=== PATIENT | male | born 2000 | race Caucasian/White ===

== ENCOUNTER 2021-05-22 19:16 | Inpatient (IN) ==
[2021-05-22] MEDS ORDERED: ACETAMINOPHEN 325 MG TAB PO STA (21:08)
[2021-05-22] MEDS ORDERED: COLCHICINE 0.6 MG TAB PO ONE (21:08)
[2021-05-22] MEDS ORDERED: KETOROLAC TROMETHAMINE 15 MG/ML VIAL IV STA (21:08)
[2021-05-22 21:18] LABS: Basophils # (auto) 0.02 K/uL (0-0.2); Basophils % (auto) 0.2 %; Hematocrit (blood only) 43.7 % (42-52); Hemoglobin 14.7 g/dL (14.0-18.0); Immature Granulocytes # (auto) 0.02 K/uL (0.00-0.02); Immature Granulocytes % (auto) 0.2 %; Lymphocytes # (auto) 1.64 K/uL (1.2-3.4); Lymphocytes % (auto) 19.2 %; Mean Corpuscular Hgb Conc 33.6 g/dL (32-36); Mean Corpuscular Volume 83.2 fL (80-100); Mean Platelet Volume 10.3 fL (7.4-10.4); Monocytes # (auto) 0.99 K/uL (0.11-0.59); Monocytes % (auto) 11.6 %; Neutrophils # (auto) 5.26 K/uL (1.4-6.5); Neutrophils % (auto) 61.8 %; Platelet Count 234 K/uL (130-400); RDW Coefficient of Variation 14.3 % (11.5-14.5); RDW Standard Deviation 43.7 fL (36.4-46.3); Red Blood Count 5.25 M/uL (4.7-6.1); White Blood Count 8.53 K/uL (4.8-10.8)
--- NOTE | 2021-05-22 21:38 | Emergency Department Note ---
Impression & Plan Precordial chest pain, Elevated troponin, Vaccine reaction, Acute myopericarditis, Acute electrocardiogram changes ED Provider Note NAME: JOSE CAMACHO Jr AGE: 20 SEX: M : 2000 ARRIVES VIA: Walk-In INFORMANT: [Patient] ED PROVIDER(S): [Christiano Vasquez MD] CHIEF COMPLAINT: Cardiac assessment HISTORY OF PRESENT ILLNESS: The patient is a 20-year-old male who had a Moderna booster vaccination for COVID-19 just a few days ago. The day after the vaccination, he had a headache and some flulike symptoms and a low-grade fever. He had similar symptoms with his first vaccination series. Yesterday evening, he noticed some chest pain when he was lying down. The pain was mild. He was able to sleep. This morning, he had some mild discomfort but things were bearable. This evening, he noticed 9/10 chest pain when he was lying flat. He was not short of breath. His headache and flulike symptoms are gone, his fever is gone. His pain across the chest is better sitting forward. The patient presents for evaluation. The patient has a history of asthma, he has no coronary history. He denies any previous cardiac history. REVIEW OF SYSTEMS: See HPI for pertinent positives and negatives. A total of ten systems were reviewed and were otherwise negative. PMHx/PSHx: See Below SOCIAL HISTORY: See Below. PHYSICAL EXAM: GENERAL: Patient is in mild distress. Anxious, tearful. HEENT: No acute trauma, normocephalic atraumatic, mucous membranes moist, no nasal congestion, no scleral icterus. NECK: No stridor, no adenopathy, no meningismus, trachea is midline. LUNGS: Clear to auscultation bilaterally, no wheeze, no rhonchi, breath sounds equal. HEART: Without murmurs gallops or rubs, regular rate and rhythm. Patient was sitting forward during my exam. ABDOMEN: Soft, nontender, bowel sounds positive, no hernias, no peritonitis. EXTREMITIES: No cyanosis or edema, full range of motion of all the joints without pain or difficulty, no signs for acute trauma. NEUROLOGIC: Oriented x 3, no acute motor or sensory deficits, no focal weakness. SKIN: No rash, no jaundice, no diaphoresis. DIFFERENTIAL DIAGNOSIS: Cardiac ischemia, Covid vaccine reaction, aortic dissection, pulmonary embolism, pneumothorax, pneumonia, pericarditis, myocarditis, esophageal rupture, GERD, cholecystitis, pancreatitis, musculoskeletal, as well as other pathologies. EMERGENCY DEPARTMENT COURSE/PROCEDURES: ECG: Indication was chest pain. The ECG shows a normal sinus rhythm with a rate of 64. There is ST elevation across almost every lead. The inferior, anterior and lateral leads show upsloping ST elevation. There are inverted T waves with some ST depression in leads aVR and V1. There are inverted T waves in lead aVL. There are no PVCs. The QTc is 389. Continuous Cardiac Monitoring: An order was placed for continuous cardiac monitoring. The monitor shows a rate of 65 with normal sinus rhythm. Critical Care Note: I have personally spent 39 minutes of critical care time in the direct management of this patient. This includes bedside care, interpretation of diagnostic studies, and testing, discussion with consultants, patient, and family members, and other required patient management activities. This 39 minutes is in excess of all separately billable procedures. MEDICAL DECISION MAKING: There is no leukocytosis or concerning anemia. There is a normal platelet count. Sed rate is mildly elevated, C-reactive protein is elevated. There is no significant electrolyte abnormality or renal failure. AST is mildly elevated, the remaining liver enzymes are unremarkable. No evidence for pancreatitis. The patient appears to be in a euthyroid state. Covid testing returned negative. Chest x-ray does not show mediastinal widening, cardiomegaly or CHF. ECG shows sinus rhythm with diffuse upsloping ST elevation with some reciprocal changes. ECG is consistent with pericarditis. Cardiac enzyme testi ng is elevated consistent with the diagnosis of myopericarditis. The patient presents with chest pain which is present lying down, it is better when he sits forward. He has ECG changes suggesting a pericarditis. He just received the Covid vaccination which has been known to occasionally lead to a myopericarditis. I did consult Dr. Kellogg of cardiology. The patient can be admitted to our hospital. Toradol, Tylenol and colchicine were suggested. The patient was given IV Toradol, oral colchicine and oral Tylenol. I talked to the patient about his findings, he is aware of the diagnosis and the need for a hospital stay. I did offer to talk to his family however, he did not feel this was necessary. I spoke with the assistant case manager. The on-call hospitalist was consulted. Past Med/Surg History Medical History Asthma Social History Smoking Status: Never smoker Preferred Language: Luxembourgish Feels Safe at Home: Yes Results & Data (ED) Vital Signs Vital Signs - 24 hr 05/22/21 19:37 05/22/21 20:55 05/22/21 21:00 Temperature 37 C Temperature Source Temporal Artery Scan Pulse Rate 73 Pulse Rate [Apical] 87 Pulse Rhythm [Apical] Regular Respiratory Rate 18 19 Respiratory Depth Normal Blood Pressure 115/70 Blood Pressure [Right Arm] 102/63 Blood Pressure Mean 85 Blood Pressure Mean [Right Arm] 76 Pulse Oximetry 97 95 95 Oxygen Delivery Method Room Air Room Air Oxygen Flow Rate 99 Sepsis Recent Fever Within 48 Hours No Sepsis New/Unexplained Change in Mental Status No Sepsis Action Taken by Nursing No Action Required 05/22/21 22:00 Temperature Temperature Source Pulse Rate Pulse Rate [Apical] 83 Pulse Rhythm [Apical] Regular Respiratory Rate 20 Respiratory Depth Blood Pressure Blood Pressure [Right Arm] 108/73 Blood Pressure Mean Blood Pressure Mean [Right Arm] 84 Pulse Oximetry 98 Oxygen Delivery Method Room Air Oxygen Flow Rate Sepsis Recent Fever Within 48 Hours Sepsis New/Unexplained Change in Mental Status Sepsis Action Taken by Custodial Medications Current Medication List: was personally reviewed by me Laboratory Data Attestation: I reviewed the patient's lab results. Result diagrams: 05/22/21 21:03 05/22/21 21:03 Lab Results 05/22/21 05/22/21 05/22/21 Range/Units 21:03 21:03 21:03 WBC 8.53 (4.8-10.8) K/uL RBC 5.25 (4.7-6.1) M/uL Hgb 14.7 (14.0-18.0) g/dL Hct 43.7 (42-52) % MCV 83.2 (80-100) fL MCH 28.0 (25-34) pg MCHC 33.6 (32-36) g/dL RDW Std Deviation 43.7 (36.4-46.3) fL RDW Coeff of Thom 14.3 (11.5-14.5) % Plt Count 234 (130-400) K/uL MPV 10.3 (7.4-10.4) fL Immature Gran % (Auto) 0.2 % Neut % (Auto) 61.8 % Lymph % (Auto) 19.2 % [place] % (Auto) 11.6 % Eos % (Auto) 7.0 % Baso % (Auto) 0.2 % Neut # (Auto) 5.26 (1.4-6.5) K/uL Lymph # (Auto) 1.64 (1.2-3.4) K/uL [place] # (Auto) 0.99 H (0.11-0.59) K/uL Eos # (Auto) 0.60 H (0-0.5) K/uL Baso # (Auto) 0.02 (0-0.2) K/uL Immature Gran # (Auto) 0.02 (0.00-0.02) K/uL ESR 25 H (0-15) mm/hr Sodium 138 (136-145) mmol/L Potassium 3.9 (3.5-5.1) mmol/L Chloride 101 (98-107) mmol/L Carbon Dioxide 28 (21-32) mmol/L Anion Gap 9 (3-11) BUN 9 (6-23) mg/dl Creatinine 0.82 (0.6-1.4) mg/dl Est Cr Clr Drug Dosing 128.5 ml/min Est GFR ( Amer) 148.6 ml/min Est GFR (Non-Af Amer) 128.2 ml/min BUN/Creatinine Ratio 11.0 (10-20) Glucose 90 (70-99(Fasting)) mg/dl Calcium 9.1 (8.5-10.1) mg/dl Magnesium 2.2 (1.7-2.4) mg/dl Total Bilirubin 0.5 (0.2-1.0) mg/dl AST 121 H (13-39) U/L ALT 41 (7-52) U/L Alkaline Phosphatase 67 (34-104) U/L Troponin I 8.65 H* (0-0.04) ng/ml C-Reactive Protein 2.59 H (0-0.5) mg/dl Total Protein 7.7 (6.0-8.3) gm/dl Albumin 4.5 (3.4-5.0) gm/dl Globulin 3.2 (2.5-4.0) gm/dl Albumin/Globulin Ratio 1.4 (0.9-2) Lipase 7 L (11-82) U/L TSH (0.300-4.500) uIu/ml SARS-CoV-2, RNA, NAAT (NEGATIVE) 05/22/21 05/22/21 05/22/21 Range/Units 21:03 21:03 21:35 WBC (4.8-10.8) K/uL RBC (4.7-6.1) M/uL Hgb (14.0-18.0) g/dL Hct (42-52) % MCV (80-100) fL MCH (25-34) pg MCHC (32-36) g/dL RDW Std Deviation (36.4-46.3) fL RDW Coeff of Thom (11.5-14.5) % Plt Count (130-400) K/uL MPV (7.4-10.4) fL Immature Gran % (Auto) % Neut % (Auto) % Lymph % (Auto) % [place] % (Auto) % Eos % (Auto) % Baso % (Auto) % Neut # (Auto) (1.4-6.5) K/uL Lymph # (Auto) (1.2-3.4) K/uL [place] # (Auto) (0.11-0.59) K/uL Eos # (Auto) (0-0.5) K/uL Baso # (Auto) (0-0.2) K/uL Immature Gran # (Auto) (0.00-0.02) K/uL ESR (0-15) mm/hr Sodium (136-145) mmol/L Potassium (3.5-5.1) mmol/L Chloride (98-107) mmol/L Carbon Dioxide (21-32) mmol/L Anion Gap (3-11) BUN (6-23) mg/dl Creatinine (0.6-1.4) mg/dl Est Cr Clr Drug Dosing ml/min Est GFR ( Amer) ml/min Est GFR (Non-Af Amer) ml/min BUN/Creatinine Ratio (10-20) Glucose (70-99(Fasting)) mg/dl Calcium (8.5-10.1) mg/dl Magnesium (1.7-2.4) mg/dl Total Bilirubin (0.2-1.0) mg/dl AST (13-39) U/L ALT (7-52) U/L Alkaline Phosphatase (34-104) U/L Troponin I (0-0.04) ng/ml C-Reactive Protein Cancelled (0-0.5) mg/dl Total Protein (6.0-8.3) gm/dl Albumin (3.4-5.0) gm/dl Globulin (2.5-4.0) gm/dl Albumin/Globulin Ratio (0.9-2) Lipase (11-82) U/L TSH 2.317 (0.300-4.500) uIu/ml SARS-CoV-2, RNA, NAAT NEGATIVE (NEGATIVE) Administered Medications Discontinued Medications Acetaminophen (Acetaminophen 325 Mg Tab) 650 mg PO NOW STA Stop: 05/22/21 21:09 Last Admin: 05/22/21 21:32 Dose: 650 mg Documented by: [id number] Colchicine (Colchicine 0.6 Mg Tab) 0.6 mg PO NOW ONE Stop: 05/22/21 21:09 Last Admin: 05/22/21 21:32 Dose: 0.6 mg Documented by: [id number] Ketorolac Tromethamine (Ketorolac Tromethamine 15 Mg/Ml Vial) 15 mg IV NOW STA Stop: 05/22/21 21:09 Last Admin: 05/22/21 21:32 Dose: 15 mg Documented by: [id number] Imaging Data Attestation: I personally reviewed and interpreted this imaging study as follows: My Impression: Chest x-ray: There is no mediastinal widening, pneumonia or pneumothorax. No CHF per my review. Discharge Plan Visit Data Chief Complaint: Cardiac Assessment Stated Complaint: CHEST PAIN, COVID BOOSTER SAT ED Provider: Christiano Vasquez Discharge Problem: Precordial chest pain, Elevated troponin, Vaccine reaction, Acute myopericarditis, Acute electrocardiogram changes Patient Disposition: Admitted As Inpatient Condition: Fair Forms Stand Alone Forms: My [facility] Referrals Referrals: PCP,NO [Primary Care Provider] -
[2021-05-22 21:49] LABS: Albumin Globulin Ratio 1.4 (0.9-2); Albumin Level 4.5 gm/dl (3.4-5.0); Bilirubin,Total 0.5 mg/dl (0.2-1.0); C Reactive Protein 2.59 mg/dl (0-0.5); Calcium 9.1 mg/dl (8.5-10.1); Creatinine Clr Calc Pharmacy 128.5 ml/min; Est GFR (African American) 148.6 ml/min; Est GFR (Non-African American) 128.2 ml/min; Globulin 3.2 gm/dl (2.5-4.0); Magnesium 2.2 mg/dl (1.7-2.4); Potassium 3.9 mmol/L (3.5-5.1); Total Protein 7.7 gm/dl (6.0-8.3)
[2021-05-22 21:54] LABS: Troponin I 8.65 ng/ml (0-0.04)
--- NOTE | 2021-05-22 22:59 | History & Physical Report ---
Date of Service May 22, 2021 Assessment & Plan (1) Precordial chest pain: Plan: Srinivasan is a 20-year-old male with history of intermittent asthma and eczema who presents to [facility] for evaluation of chest pain approx. 3 days after receiving Moderna booster, subsequently found to have diffuse ST-T elevations, an elevated troponin, and elevated inflammatory markers -- concerning for myopericarditis. Suspected Myopericarditis / Positionally-related Chest Pain In the context of Covid vaccination approximately 3 days ago, patient developed acute onset positionally related chest pain Work-up as follows: EKG demonstrating diffuse ST elevations in the inferior and precordial leads, alongside elevated troponin to 8.6, elevated AST, and elevated inflammatory markers Physical exam revealing weak rub, otherwise no evidence of acute heart failure; upper/lower extremity pulses are 2+ and equal bilaterally, no focal neurologic deficits No family history of early cardiac , aortopathies Suspect patient's presentation is primarily secondary to myopericarditis; low concern, at present, for aortic dissection, ACS, coronary vasospasm, PE Check TTE in a.m. Consult cardiology: Appreciate insight on length of treatment / need for CRP checks, activity restrictions following discharge from the hospital, need for repeat echo in future Initiate scheduled colchicine 0.6 mg twice daily and Toradol 15 mg every 6 hours (no more than 5 days) -- ED physician spoke with on-call enameler who recommended these two Check CBC, CRP in a.m. Trend troponin every 6 hours COVID-19 negative Pending cardiology review, may wish to speak with pharmacy and report this event to adverse vaccine events database Intermittent asthma Patient reports only utilizing albuterol inhaler as needed, which is quite rare If patient reporting shortness of breath, will evaluate to ensure not secondary to cardiovascular cause; otherwise, can consider albuterol as needed Code: Full code Diet: Regular Dispo: PCU Prophylaxis: Ambulate ad sivakumar. (2) Elevated troponin: Plan: - As above, trend (3) Vaccine reaction: Plan: - Suspected, as above. May wish to speak to pharmacy following cardiology consultation to potentially report this event to vaccine adverse events database. History of Present Illness Primary Care Provider: NO PCP Srinivasan is a 20-year-old male with history of intermittent asthma and eczema who presents to [facility] for evaluation of chest pain. Patient states that he was in his normal health up until this weekend, when he got the third Moderna vaccine. Like his to previous shots, he said he felt under the weather and had some chills and fatigue. Then, beginning last night, he began having a mild chest pain that was worse with lying down and better with sitting up. He was able to get to sleep however. He then went about his day today with classes and when he got home, laid down and had severe 9 out of 10 chest pain on his right side that got better when he sat up. He thereafter continued to have an intermittent chest pain that he describes as dull and squeezing. He said that with lying down, he felt a little short of breath. Because of his symptoms, did decide to come to the ER for evaluation. He denies any recent illnesses prior to this event/last week. Denies any new medications. He is a college student at [employer], currently a sophomore studying structural engineering. Denies any use of any recreational drugs (including cocaine), alcohol, tobacco products. He denies any early cardiac or events in the family, but does endorse several family members who have had strokes and myocardial infarctions (specifically, his 2 grandfathers). He denies history of aortic disease that is known to him. In the ED, patient was found to be hemodynamically stable. His EKG was revealing for diffuse ST elevations within the leads II, III, aVF, V3 through V6; also observed were T wave inversions in aVR, aVL, V1, V2. Chest x-ray did not demonstrate any acute pulmonary processes; no evidence of cardiomegaly. Labs were significant for troponin 8.65, CRP 2.59, ESR 25, relative monocytosis at 0.99, eosinophilia at 0.6. Covid testing negative. Emergency physician spoke with the on-call enameler, who agreed that patient's presentation was concerning for myopericarditis; regular Toradol and colchicine were recommended. Allergies Allergy/AdvReac Type Severity Reaction Status Date / Time peanut Allergy Severe Anaphylaxis Verified 05/22/21 23:32 shrimp Allergy Unknown Verified 05/22/21 23:32 Home Medications Medication Instructions Recorded Confirmed Type Perscribed Lotion 1 applic TOPICAL DAILY 05/22/21 05/22/21 History diphenhydramine HCl 6.25 mg/5 mL 0 mg PO DIRECTED PRN 05/22/21 05/22/21 History oral liquid Past Med/Surg History Medical History Asthma Family History (Updated 05/23/21 @ 01:44 by Dafne Nelson DO) Other Coronary heart disease Stroke Social History Smoking Status: Never smoker Hx Alcohol Use: No Hx Substance Use: No Preferred Language: Citizen Of [place] Communication Ability: Effective Alkylation Operator Required: No Beliefs That Will Affect Care: None Current Living Situation: Other Current Living Situation Comment: lives with two roommates in an apartment Other Information That Helps Us Care for You: No Feels Safe at Home: Yes Safety Concerns: Feels Safe At This Time Assistive Devices: None Review of Systems Review of Systems: as per HPI Physical Exam Physical Exam: General: Healthy-appearing 20-year-old male in no acute distress. HEENT: NCAT. - Eyes - Sclera are white, anicteric, and without injection. PERRL. - Mouth - MMM with no tonsillar edema or exudates. - Neck -no JVD. Cardiac: Normal rate and regular rhythm; S1 and S2 present with no murmurs or gallops, very soft rub heard with inspiration at the LUSB Pulmonary: Good respiratory effort with symmetric expansion of the chest. No use of accessory muscles. Lungs were clear to auscultation bilaterally with no crackles or wheezes. Abdominal: Normoactive bowel sounds. Abdomen was soft, nondistended, and non- tender to palpation. Extremities: Upper and lower extremities are warm and well perfused. Radial and dorsalis pedis pulses were equal and 2+ b/l. No peripheral edema. Neuro: CN II-XII grossly intact. ROM in UE, LE was uniform bilaterally. Psych: Well-developed, well-nourished, appropriately dressed for occasion. Behavior is cooperative and appropriate. Affect is WNL. Insight is appropriate. Results & Data Results & Data ([facility]) Vital Signs (Past 12 Hours) Vital Signs Temp Pulse Pulse Resp BP BP Pulse Ox 05/22/21 22:00 83 20 108/73 98 05/22/21 21:00 95 05/22/21 20:55 87 19 102/63 95 05/22/21 19:37 37 C 73 18 115/70 97 Laboratory Results Laboratory Results WBC 8.53 K/uL (4.8-10.8) 05/22/21 21:03 RBC 5.25 M/uL (4.7-6.1) 05/22/21 21:03 Hgb 14.7 g/dL (14.0-18.0) 05/22/21 21:03 Hct 43.7 % (42-52) 05/22/21 21:03 MCV 83.2 fL (80-100) 05/22/21 21:03 MCH 28.0 pg (25-34) 05/22/21 21: MCHC 33.6 g/dL (32-36) 05/22/21 21:03 RDW Std Deviation 43.7 fL (36.4-46.3) 05/22/21 21:03 RDW Coeff of Thom 14.3 % (11.5-14.5) 05/22/21 21: Plt Count 234 K/uL (130-400) 05/22/21 21:03 MPV 10.3 fL (7.4-10.4) 05/22/21 21:03 Immature Gran % (Auto) 0.2 % 05/22/21 21: Neut % (Auto) 61.8 % 05/22/21 21: Lymph % (Auto) 19.2 % 05/22/21 21:03 [place] % (Auto) 11.6 % 05/22/21 21:03 Eos % (Auto) 7.0 % 05/22/21 21: Baso % (Auto) 0.2 % 05/22/21 21: Neut # (Auto) 5.26 K/uL (1.4-6.5) 05/22/21 21:03 Lymph # (Auto) 1.64 K/uL (1.2-3.4) 05/22/21 21:03 [place] # (Auto) 0.99 K/uL (0.11-0.59) H 05/22/21 21:03 Eos # (Auto) 0.60 K/uL (0-0.5) H 05/22/21 21:03 Baso # (Auto) 0.02 K/uL (0-0.2) 05/22/21 21:03 Immature Gran # (Auto) 0.02 K/uL (0.00-0.02) 05/22/21 21:03 ESR 25 mm/hr (0-15) H 05/22/21 21:03 Sodium 138 mmol/L (136-145) 05/22/21 21:03 Potassium 3.9 mmol/L (3.5-5.1) 05/22/21 21:03 Chloride 101 mmol/L (98-107) 05/22/21 21:03 Carbon Dioxide 28 mmol/L (21-32) 05/22/21 21:03 Anion Gap 9 (3-11) 05/22/21 21:03 BUN 9 mg/dl (6-23) 05/22/21 21:03 Creatinine 0.82 mg/dl (0.6-1.4) 05/22/21 21:03 Est Cr Clr Drug Dosing 128.5 ml/min 05/22/21 21:03 Est GFR ( Amer) 148.6 ml/min 05/22/21 21:03 Est GFR (Non-Af Amer) 128.2 ml/min 05/22/21 21:03 BUN/Creatinine Ratio 11.0 (10-20) 05/22/21 21:03 Glucose 90 mg/dl (70-99(Fasting)) 05/22/21 21:03 Calcium 9.1 mg/dl (8.5-10.1) 05/22/21 21: Magnesium 2.2 mg/dl (1.7-2.4) 05/22/21 21: Total Bilirubin 0.5 mg/dl (0.2-1.0) 05/22/21 21:03 AST 121 U/L (13-39) H 05/22/21 21:03 ALT 41 U/L (7-52) 05/22/21 21:03 Alkaline Phosphatase 67 U/L (34-104) 05/22/21 21:03 Troponin I 8.65 ng/ml (0-0.04) H* 05/22/21 21:03 C-Reactive Protein 2.59 mg/dl (0-0.5) H 05/22/21 21:03 C-Reactive Protein Cancelled 05/22/21 21:03 Total Protein 7.7 gm/dl (6.0-8.3) 05/22/21 21:03 Albumin 4.5 gm/dl (3.4-5.0) 05/22/21 21:03 Globulin 3.2 gm/dl (2.5-4.0) 05/22/21 21:03 Albumin/Globulin Ratio 1.4 (0.9-2) 05/22/21 21:03 Lipase 7 U/L (11-82) L 05/22/21 21:03 TSH 2.317 uIu/ml (0.300-4.500) 05/22/21 21:03 SARS-CoV-2, RNA, NAAT NEGATIVE (NEGATIVE) 05/22/21 21:35 ECG Additional Comments: EKG with NSR at 64bpm, up-sloping ST segments in II, III, aVF, V4-V6, TW inversions in aVL and V1 Code Status & VTE Plan VTE Prophylaxis Plan VTE Prophylaxis will be ordered: No Supervising Physician Co-Signing Physician Notes Patient seen and examined, chart reviewed, case discussed with Dr. Zepeda and I agree with the assessment and plan as documented above. In brief, patient is a 20yo male presenting with myopericarditis following Covid-19 booster vaccine. +positional chest pain, EKG changes consistent with pericarditis, elevated troponin at 8.65 No evidence of failure or arrhythmia Exam is unremarkable, - afebrile, HD stable +S1/S2, regular, no m/r/g Lungs CTA Abd - +BS, soft, NT/ND Ext warm, well perfused without clubbing, cyanosis or edema Labs and images reviewed Assessment/Plan - suspect acute myopericarditis secondary to Covid-19 booster vaccine - rare but highly reported side effect typically occurring in young men Tx with colcicine, toradol Trend troponin and inflammatory markers Cardiology consultation appreciated Resident Activity Tracking Resident Involvement: Resident Care Provided Care Provided: Adult Hospital Medicine (1) Vaccine reaction Encounter type: initial encounter Qualified Code(s): T50.Z95A - Adverse effect of other vaccines and biological substances, initial encounter
--- NOTE | 2021-05-23 01:42 | Billing Data ---
Date of Service May 22, 2021 Coding Level of Care Code 57552 Initial Inpt Care Lvl 2
[2021-05-23] MEDS: KETOROLAC TROMETHAMINE 15 MG/ML VIAL IV SCH ×2 (03:19→13:07)
--- NOTE | 2021-05-23 06:37 | XRay Report ---
SINGLE VIEW CHEST CLINICAL HISTORY: Atypical chest pain. FINDINGS: An AP, portable, upright chest radiograph is obtained No prior studies are available for co mparison at the time of dictation. The cardiomediastinal silhouette is unremarkable. The lungs and pl eural spaces are clear. No pneumothorax is seen. The bony thorax is grossly intact. IMPRESSION: No active disease in the chest. ACT 112: Negative or not required by law. Electronically signed by: Christiano Walsh M.D. 05/23/2021 6:36 AM
[2021-05-23] MEDS: COLCHICINE 0.6 MG TAB PO SCH ×2 (08:38→20:22)
[2021-05-23 09:29] LABS: Basophils # (auto) 0.02 K/uL (0-0.2); Basophils % (auto) 0.4 %; Eosinophils # (auto) 0.74 K/uL (0-0.5); Eosinophils % (auto) 13.6 %; Hematocrit (blood only) 45.4 % (42-52); Immature Granulocytes # (auto) 0.01 K/uL (0.00-0.02); Immature Granulocytes % (auto) 0.2 %; Lymphocytes # (auto) 1.45 K/uL (1.2-3.4); Lymphocytes % (auto) 26.6 %; Mean Corpuscular Hemoglobin 27.9 pg (25-34); Mean Corpuscular Volume 84.4 fL (80-100); Mean Platelet Volume 9.8 fL (7.4-10.4); Monocytes # (auto) 0.66 K/uL (0.11-0.59); Monocytes % (auto) 12.1 %; Neutrophils # (auto) 2.57 K/uL (1.4-6.5); Neutrophils % (auto) 47.1 %; Platelet Count 226 K/uL (130-400); RDW Coefficient of Variation 14.4 % (11.5-14.5); RDW Standard Deviation 44.6 fL (36.4-46.3); Red Blood Count 5.38 M/uL (4.7-6.1); White Blood Count 5.45 K/uL (4.8-10.8)
[2021-05-23 10:04] LABS: Alanine Aminotransferase 38 U/L (7-52); Albumin Globulin Ratio 1.3 (0.9-2); Albumin Level 4.2 gm/dl (3.4-5.0); Alkaline Phosphatase 63 U/L (34-104); Anion Gap 3 (3-11); Aspartate Aminotransferase 115 U/L (13-39); BUN Creatinine Ratio 11.3 (10-20); Bilirubin,Total 0.8 mg/dl (0.2-1.0); Blood Urea Nitrogen 9 mg/dl (6-23); C Reactive Protein 2.07 mg/dl (0-0.5); Calcium 9.3 mg/dl (8.5-10.1); Carbon Dioxide 33 mmol/L (21-32); Chloride 103 mmol/L (98-107); Creatinine Clr Calc Pharmacy 130.7 ml/min; Est GFR (African American) > 150.0 ml/min; Est GFR (Non-African American) 129.5 ml/min; Globulin 3.2 gm/dl (2.5-4.0); Glucose 73 mg/dl (70-99(Fasting)); Potassium 3.8 mmol/L (3.5-5.1); Sodium 139 mmol/L (136-145); Total Protein 7.4 gm/dl (6.0-8.3)
[2021-05-23 10:07] LABS: Troponin I 8.35 ng/ml (0-0.04)
--- NOTE | 2021-05-23 11:30 | Cardiology Consultation ---
Date of Consultation May 23, 2021 Assessment & Plan (1) Precordial chest pain: (2) Acute myopericarditis: (3) Elevated troponin: 1. Chest discomfort: His chest discomfort is very typical of pericarditis and it has been relieved with colchicine. He feels very well today. 2. Acute myopericarditis: He presents with acute myopericarditis occurring several days after vaccination, that may or may not be the responsible event. The presentation is classic with his symptoms, his electrocardiographic findings and he had an elevated troponin which increased yesterday and has now improved. For this I would continue colchicine for at least 3 to 6 months. I would avoid the use of NSAIDs. We can follow this up in 1 to 2 weeks in the office to make sure he does not have recurrence and to reevaluate his left ventricular function, it is worrisome that he has some degree of dysfunction and hopefully that will recover quickly. 3. Elevated troponin: His troponin was quite high when he presented, it increased last evening and is now back to slightly below his presentation value. I would send him home on colchicine and follow-up with a troponin in 1 to 2 weeks. I can arrange follow-up. 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 He received his Covid vaccine booster on May 19, 2021, he felt well until March 23, 2021 when he developed some minor chest discomfort which he ignored but on March 24, 2021 the symptoms were quite severe when he went to class and he therefore came into the emergency room. In the emergency room he had evidence of pericarditis on electrocardiography as well as elevated inflammatory markers and an elevated troponin. He was started on colchicine and Toradol. On my interview with him this morning he was having no further chest discomfort, that having resolved at some time during the night last night. He notes that the symptoms were much more severe when he presented with laying down and improved with sitting up. He noted no change in his exercise ability although he does not perform specific athletics. He has not had orthopnea, PND or peripheral edema. He has noted no palpitations. Allergies Allergy/AdvReac Type Severity Reaction Status Date / Time peanut Allergy Severe Anaphylaxis Verified 05/22/21 23:32 shrimp Allergy Unknown Verified 05/22/21 23:32 Home Medications Medication Instructions Recorded Confirmed Type Perscribed Lotion 1 applic TOPICAL DAILY 05/22/21 05/22/21 History diphenhydramine HCl 6.25 mg/5 mL 0 mg PO DIRECTED PRN 05/22/21 05/22/21 History oral liquid colchicine 0.6 mg tablet (Colcrys) 0.6 mg PO BID #60 tab 05/23/21 Rx Patient History Medical History Asthma Family History Other Coronary heart disease Stroke Social History Smoking Status: Never smoker Hx Alcohol Use: No Hx Substance Use: No Preferred Language: Ghanaian Communication Ability: Effective Bank Courier Required: No Beliefs That Will Affect Care: None Current Living Situation: Other Current Living Situation Comment: lives with two roommates in an apartment Other Information That Helps Us Care for You: No Feels Safe at Home: Yes Safety Concerns: Feels Safe At This Time Assistive Devices: None Review of Systems Review of Systems: All systems reviewed & are unremarkable except as noted in HPI & below Physical Exam Physical Exam: Constitutional: Alert, cooperative and in no distress. HEENT: Unremarkable Neck: No jugular venous distention, carotid pulses are normal and equal bilaterally without bruits. Pulmonary: Clear to auscultation bilaterally. Cardiac: Regular rhythm with no murmur, gallop or rub. Abdomen: Soft, nontender with normal bowel sounds. Extremities: No edema. Distal pulses intact. Neurologic: No focal findings. Gait was not tested. Skin: No rash, ecchymoses or petechiae. Results & Data ([facility]) Vital Signs (Past 12 Hours) Vital Signs Temp Pulse Pulse Resp BP BP Pulse Ox 05/23/21 07:32 36.8 C 78 14 97/57 L 97 05/23/21 04:10 36.8 C 65 18 104/60 96 05/23/21 00:24 36.7 C 74 16 113/64 96 05/23/21 00:01 71 16 113/65 96 04/05/22 23:30 68 18 109/68 96 Laboratory Results Cardiac Enzymes 05/22/21 05/23/21 05/23/21 Range/Units 21:03 02:51 09:15 AST 121 H 115 H (13-39) U/L Troponin I 8.65 H* 12.38 H* 8.35 H* (0-0.04) ng/ml 05/23/21 Range/Units 09:15 AST (13-39) U/L Troponin I Cancelled (0-0.04) ng/ml CBC 05/22/21 05/23/21 Range/Units 21:03 09:15 WBC 8.53 5.45 (4.8-10.8) K/uL RBC 5.25 5.38 (4.7-6.1) M/uL Hgb 14.7 15.0 (14.0-18.0) g/dL Hct 43.7 45.4 (42-52) % Plt Count 234 226 (130-400) K/uL Neut # (Auto) 5.26 2.57 (1.4-6.5) K/uL Lymph # (Auto) 1.64 1.45 (1.2-3.4) K/uL Williamson # (Auto) 0.99 H 0.66 H (0.11-0.59) K/uL Eos # (Auto) 0.60 H 0.74 H (0-0.5) K/uL Baso # (Auto) 0.02 0.02 (0-0.2) K/uL Comprehensive Metabolic Panel 05/22/21 05/23/21 Range/Units 21:03 09:15 Sodium 138 139 (136-145) mmol/L Potassium 3.9 3.8 (3.5-5.1) mmol/L Chloride 101 103 (98-107) mmol/L Carbon Dioxide 28 33 H (21-32) mmol/L BUN 9 9 (6-23) mg/dl Creatinine 0.82 0.80 (0.6-1.4) mg/dl Glucose 90 73 (70-99(Fasting)) mg/dl Calcium 9.1 9.3 (8.5-10.1) mg/dl AST 121 H 115 H (13-39) U/L ALT 41 38 (7-52) U/L Alkaline Phosphatase 67 63 (34-104) U/L Total Protein 7.7 7.4 (6.0-8.3) gm/dl Albumin 4.5 4.2 (3.4-5.0) gm/dl Intake and Output 05/22/21 05/23/21 05/23/21 22:59 06:59 14:59 Intake Total 50 / 50 Output Total 550 / 550 Balance -500 / -500 Intake: Oral 50 / 50 Output: Urine 550 / 550 Other: Weight 62.7 kg 62.2 kg Weight Measurement Method Built in [facility] Diagnostic Findings Telemetry: Sinus rhythm, rate typically in the 80s but variable. Echocardiography: Mild left ventricular dysfunction PG Care Time/CCT Total # of Minutes Spent Total Time Spent with Patient: Total time spent is greater than 50% in coordination of care (as documented) at patient's floor/unit and/or counseling patient: Coding Level of Care Code 67136 Office/OBS Consult Lvl 4 Diagnoses Precordial chest pain R07.2 Acute myopericarditis I30.9 Elevated troponin R77.8
--- NOTE | 2021-05-23 14:22 | XCELERA ---
[id number]
--- NOTE | 2021-05-23 16:03 | Hospitalist Progress Note ---
Date of Service May 23, 2021 Assessment & Plan (1) Precordial chest pain: Plan: Srinivasan is a 20-year-old male with history of intermittent asthma and eczema who presents to [facility] for evaluation of chest pain approx. 3 days after receiving Moderna booster, subsequently found to have diffuse ST-T elevations, an elevated troponin, and elevated inflammatory markers -- concerning for myopericarditis. Suspected Myopericarditis / Positionally-related Chest Pain In the context of Covid vaccination approximately 3 days ago, patient developed acute onset positionally related chest pain Work-up as follows: EKG demonstrating diffuse ST elevations in the inferior and precordial leads, alongside elevated troponin to 8.6, elevated AST, and elevated inflammatory markers Physical exam revealing weak rub, otherwise no evidence of acute heart failure; upper/lower extremity pulses are 2+ and equal bilaterally, no focal neurologic deficits No family history of early cardiac , aortopathies Suspect patient's presentation is primarily secondary to myopericarditis; low concern, at present, for aortic dissection, ACS, coronary vasospasm, PE Consult cardiology: Appreciate insight on length of treatment / need for CRP checks, activity restrictions following discharge from the hospital, need for repeat echo in future Initiate scheduled colchicine 0.6 mg twice daily and Toradol 15 mg every 6 hours (no more than 5 days) -- ED physician spoke with on-call jewelry cutter who recommended these two COVID-19 negative -> Improved today without pain. Echo showed EF 45-50% with global hypokinesis. Troponin went down in the AM, but stayed steady at 8 in the afternoon. Patient and family willing to stay 1 more night. - Repeat troponin and EKG in the AM Intermittent asthma Patient reports only utilizing albuterol inhaler as needed, which is quite rare If patient reporting shortness of breath, will evaluate to ensure not secondary to cardiovascular cause; otherwise, can consider albuterol as needed Code: Full code Diet: Regular Dispo: PCU Prophylaxis: Ambulate ad sivakumar. (2) Elevated troponin: Plan: - As above, trend (3) Vaccine reaction: Plan: - Suspected, as above. May wish to speak to pharmacy following cardiology consultation to potentially report this event to vaccine adverse events database. Admission and Anticipated Discharge Date Admission Date: May 22, 2021 Subjective Doing well today. No chest pain, no shortness of breath. Lying back in bed comfortably. Reports no fevers/chills, chest pain, shortness of breath, abdominal pain, nausea, or vomiting. Physical Exam Constitutional: WD/WN, vitals as above Eyes: EOM intact bilaterally; no conjunctival abnormality ENMT: external ear and nose normal, oropharynx normal Neck: trachea midline, no thyromegaly normal visual inspection Respiratory: normal respiratory effort, lungs clear to auscultation no respiratory distress Cardiovascular: RRR, no murmur, no edema Heart Sounds: no cardiac rub Gastrointestinal (Abdomen): Inspection/Auscultation: abdomen normal to inspection; abdomen not distended Musculoskeletal: no cyanosis or clubbing, extremities motor strength 5/5 Skin: no rashes, warm and dry Neurologic: moves all extremities and awake Psychiatric: Orientation: alert, oriented to person and cooperative Results & Data Results & Data ([facility]) Vital Signs (Past 12 Hours) Vital Signs Temp Pulse Resp BP Pulse Ox 05/23/21 11:00 36.5 C 68 20 101/67 97 05/23/21 07:32 36.8 C 78 14 97/57 L 97 05/23/21 04:10 36.8 C 65 18 104/60 96 PG Care Time/CCT Total # of Minutes Spent Total Time Spent with Patient: Total time spent is greater than 50% in coordination of care (as documented) at patient's floor/unit and/or counseling patient: Coding Level of Care Code 14667 Subseq Hosp Care Lvl 2 Diagnoses Precordial chest pain R07.2 Elevated troponin R77.8 Vaccine reaction T50.Z95A Encounter type: initial encounter (1) Vaccine reaction Encounter type: initial encounter Qualified Code(s): T50.Z95A - Adverse effect of other vaccines and biological substances, initial encounter
[2021-05-23] MEDS ORDERED: ACETAMINOPHEN 325 MG TAB PO PRN (16:05)
[2021-05-24 06:35] LABS: Hematocrit (blood only) 44.4 % (42-52); Hemoglobin 15.2 g/dL (14.0-18.0); Mean Corpuscular Hemoglobin 28.3 pg (25-34); Mean Corpuscular Hgb Conc 34.2 g/dL (32-36); Mean Corpuscular Volume 82.7 fL (80-100); Mean Platelet Volume 9.8 fL (7.4-10.4); Platelet Count 241 K/uL (130-400); RDW Coefficient of Variation 14.2 % (11.5-14.5); RDW Standard Deviation 42.9 fL (36.4-46.3); Red Blood Count 5.37 M/uL (4.7-6.1); White Blood Count 5.74 K/uL (4.8-10.8)
--- NOTE | 2021-05-24 06:50 | Electrocardiogram Report ---
Test Reason : Blood Pressure : / mmHG Vent. Rate : 064 BPM Atrial Rate : 064 BPM P-R Int : 136 ms QRS Dur : 078 ms QT Int : 378 ms P-R-T Axes : 010 074 079 degrees QTc Int : 389 ms Normal sinus rhythm Acute pericarditis Abnormal ECG No previous ECGs available Confirmed by Los Blanco ([id number]) on 05/24/2021 6:49:53 AM Referred By: REFERRED SELF Confirmed By:Los Blanco
[2021-05-24 06:56] LABS: BUN Creatinine Ratio 12.3 (10-20); Calcium 9.1 mg/dl (8.5-10.1); Creatinine Clr Calc Pharmacy 130.5 ml/min; Est GFR (African American) 149.3 ml/min; Est GFR (Non-African American) 128.8 ml/min; Magnesium 2.2 mg/dl (1.7-2.4); Potassium 4.1 mmol/L (3.5-5.1)
--- NOTE | 2021-05-24 07:02 | Electrocardiogram Report ---
Test Reason : Blood Pressure : / mmHG Vent. Rate : 067 BPM Atrial Rate : 067 BPM P-R Int : 134 ms QRS Dur : 092 ms QT Int : 402 ms P-R-T Axes : 008 068 082 degrees QTc Int : 424 ms Normal sinus rhythm with sinus arrhythmia Acute pericarditis Abnormal ECG When compared with ECG of 23-MAY-2021 06:18, (unconfirmed) No significant change Confirmed by Los Blanco ([id number]) on 05/24/2021 7:01:54 AM Referred By: REFERRED SELF Confirmed By:Los Blanco
[2021-05-24] MEDS: COLCHICINE 0.6 MG TAB PO SCH ×2 (09:05→20:58)
[2021-05-24] MEDS ORDERED: KETOROLAC TROMETHAMINE 15 MG/ML VIAL IV PRN (09:06)
--- NOTE | 2021-05-24 09:24 | Electrocardiogram Report ---
Test Reason : Blood Pressure : / mmHG Vent. Rate : 070 BPM Atrial Rate : 070 BPM P-R Int : 120 ms QRS Dur : 090 ms QT Int : 382 ms P-R-T Axes : 037 073 098 degrees QTc Int : 412 ms Normal sinus rhythm Acute pericarditis Abnormal ECG When compared with ECG of 23-MAY-2021 06:23, T wave amplitude has decreased in Inferior leads T wave inversion more evident in Anterolateral leads Confirmed by Nelson Rush ([id number]) on 05/24/2021 9:23:33 AM Referred By: REFERRED SELF Confirmed By:Nelson Rush
--- NOTE | 2021-05-24 09:29 | Electrocardiogram Report ---
Test Reason : Blood Pressure : / mmHG Vent. Rate : 061 BPM Atrial Rate : 061 BPM P-R Int : 134 ms QRS Dur : 082 ms QT Int : 384 ms P-R-T Axes : 025 068 101 degrees QTc Int : 386 ms Normal sinus rhythm Nondiagnostic inferior Q waves Acute pericarditis Abnormal ECG When compared with ECG of 23-MAY-2021 18:19, ST elevation in multiple leads less pronounced Confirmed by Nelson Rush ([id number]) on 05/24/2021 9:28:52 AM Referred By: REFERRED SELF Confirmed By:Nelson Rush
--- NOTE | 2021-05-24 10:46 | Hospitalist Progress Note ---
Date of Service May 24, 2021 Assessment & Plan (1) Precordial chest pain: Plan: Srinivasan is a 20-year-old male with history of intermittent asthma and eczema who presents to [facility] for evaluation of chest pain approx. 3 days after receiving Moderna booster, subsequently found to have diffuse ST-T elevations, an elevated troponin, and elevated inflammatory markers -- concerning for myopericarditis. Suspected Myopericarditis / Positionally-related Chest Pain In the context of Covid vaccination approximately 3 days ago, patient developed acute onset positionally related chest pain Work-up as follows: EKG demonstrating diffuse ST elevations in the inferior and precordial leads, alongside elevated troponin to 8.6, elevated AST, and elevated inflammatory markers Physical exam revealing weak rub, otherwise no evidence of acute heart failure; upper/lower extremity pulses are 2+ and equal bilaterally, no focal neurologic deficits No family history of early cardiac , aortopathies Consult cardiology: Appreciate insight on length of treatment / need for CRP checks, activity restrictions following discharge from the hospital, need for repeat echo in future Initiate scheduled colchicine 0.6 mg twice daily. Was on Toradol for first 24 hours of admission. Now PRN (see below) COVID-19 negative -> Improved today without pain. Echo showed EF 45-50% with global hypokinesis. Troponin went down in the AM, but stayed steady at 8 in the afternoon. However, this AM, troponin is uptrended to 11.2. - Repeat troponin, EKG, and limited echo in the AM. - Discussed case with Dr. Blanco and [place] cardiology consult line. All in agreement that at present, continue colchicine. NSAIDs are +/- as they can be beneficial in pericarditis, but not as much evidence with myocarditis. As his chest pain is still resolved, will use on PRN basis, but no standing NSAID for now. Intermittent asthma Patient reports only utilizing albuterol inhaler as needed, which is quite rare If patient reporting shortness of breath, will evaluate to ensure not secondary to cardiovascular cause; otherwise, can consider albuterol as needed (2) Elevated troponin: Plan: - As above, trend (3) Vaccine reaction: Plan: - Suspected, as above. Will report to database. Admission and Anticipated Discharge Date Admission Date: May 22, 2021 Subjective Doing well today. His chest pain and shortness of breath have no recurred overnight or this morning. Otherwise, feels well. Physical Exam Constitutional: WD/WN, vitals as above Eyes: EOM intact bilaterally; no conjunctival abnormality ENMT: external ear and nose normal, oropharynx normal Neck: trachea midline, no thyromegaly normal visual inspection Respiratory: normal respiratory effort, lungs clear to auscultation no respiratory distress Cardiovascular: RRR, no murmur, no edema Heart Sounds: no cardiac rub Gastrointestinal (Abdomen): Inspection/Auscultation: abdomen normal to inspection; abdomen not distended Musculoskeletal: no cyanosis or clubbing, extremities motor strength 5/5 Skin: no rashes, warm and dry Neurologic: moves all extremities and awake Psychiatric: Orientation: alert, oriented to person and cooperative Results & Data Results & Data ([facility]) Vital Signs (Past 12 Hours) Vital Signs Temp Pulse Pulse Resp BP Pulse Ox 05/24/21 08:00 78 05/24/21 07:26 36.6 C 77 14 105/63 98 05/24/21 03:46 36.7 C 69 18 107/65 97 05/23/21 22:52 36.7 C 65 18 106/54 L 96 PG Care Time/CCT Total # of Minutes Spent Total Time Spent with Patient: Total time spent is greater than 50% in coordination of care (as documented) at patient's floor/unit and/or counseling patient: Coding Level of Care Code 33614 Subseq Hosp Care Lvl 2 Diagnoses Precordial chest pain R07.2 Elevated troponin R77.8 Vaccine reaction T50.Z95A Encounter type: initial encounter (1) Vaccine reaction Encounter type: initial encounter Qualified Code(s): T50.Z95A - Adverse effect of other vaccines and biological substances, initial encounter
--- NOTE | 2021-05-24 16:39 | Cardiology Progress Note ---
Date of Service May 24, 2021 Assessment & Plan (1) Precordial chest pain: (2) Acute myopericarditis: (3) Elevated troponin: Plan: 1. Chest discomfort: His chest discomfort was very typical of pericarditis and it has been relieved with colchicine and a short course of Toradol. He feels very well today with no recurrence once Toradol was discontinued. 2. Acute myopericarditis: He presents with acute myopericarditis occurring several days after vaccination, that may or may not be the responsible event. The presentation is classic with his symptoms, his electrocardiographic findings and he had an elevated troponin which increased initially, decreased somewhat yesterday but has now increased again. For this I would continue colchicine for at least 3 to 6 months. I would avoid the use of NSAIDs. We can follow this up in 1 to 2 weeks in the office to make sure he does not have recurrence and to reevaluate his left ventricular function, it is worrisome that he has some degree of dysfunction and hopefully that will recover quickly. I would like to make sure he is not had progressive left ventricular dysfunction and will get a limited echo tomorrow morning. 3. Elevated troponin: His troponin was quite high when he presented, it increased the first evening and then dropped down yesterday to the mid 8 range, but increased this morning back to 11. I would recommend keeping him overnight and repeating the troponin this evening and in the morning to make sure it is dropping before he goes home. I would send him home on colchicine and follow-up with a troponin in 1 to 2 weeks. I can arrange follow-up. Admission and Anticipated Discharge Date Admission Date: May 22, 2021 Subjective He continues to feel well, no further chest discomfort now off of Toradol and just on colchicine. Physical Exam Physical Exam: Constitutional: Alert, cooperative and in no distress. HEENT: Unremarkable Neck: No jugular venous distention, carotid pulses are normal and equal bilaterally without bruits. Pulmonary: Clear to auscultation bilaterally. Cardiac: Regular rhythm with no murmur, gallop or rub. Abdomen: Soft, nontender with normal bowel sounds. Extremities: No edema. Distal pulses intact. Neurologic: No focal findings. Gait was not tested. Skin: No rash, ecchymoses or petechiae. Results & Data ([facility]) Vital Signs (Past 12 Hours) Vital Signs Temp Pulse Pulse Resp BP Pulse Ox 05/24/21 15:00 70 05/24/21 11:35 36.8 C 71 14 98/54 L 100 05/24/21 08:00 78 05/24/21 07:26 36.6 C 77 14 105/63 98 Laboratory Results Cardiac Enzymes 05/24/21 Range/Units 06:21 Troponin I 11.25 H* (0-0.04) ng/ml CBC 05/24/21 Range/Units 06:21 WBC 5.74 (4.8-10.8) K/uL RBC 5.37 (4.7-6.1) M/uL Hgb 15.2 (14.0-18.0) g/dL Hct 44.4 (42-52) % Plt Count 241 (130-400) K/uL Comprehensive Metabolic Panel 05/24/21 Range/Units 06:21 Sodium 138 (136-145) mmol/L Potassium 4.1 (3.5-5.1) mmol/L Chloride 103 (98-107) mmol/L Carbon Dioxide 28 (21-32) mmol/L BUN 10 (6-23) mg/dl Creatinine 0.81 (0.6-1.4) mg/dl Glucose 81 (70-99(Fasting)) mg/dl Calcium 9.1 (8.5-10.1) mg/dl Intake and Output 05/24/21 05/24/21 05/24/21 06:59 14:59 22:59 Intake Total 200 / 1050 350 / 350 Balance 200 / 1050 350 / 350 Intake: Oral 200 / 1050 350 / 350 Other: # Unmeasured Voids 2 Weight 62.9 kg Weight Measurement Method Built in [facility] Diagnostic Findings ECG: Signs of acute pericarditis persist. Little changed today. Telemetry: Sinus rhythm, occasional PACs. No ventricular arrhythmias. PG Care Time/CCT Total # of Minutes Spent Total Time Spent with Patient: Total time spent is greater than 50% in coordination of care (as documented) at patient's floor/unit and/or counseling patient: Coding Level of Care Code 76305 Subseq Hosp Care Lvl 2 Diagnoses Precordial chest pain R07.2 Acute myopericarditis I30.9 Elevated troponin R77.8
[2021-05-25] MEDS: COLCHICINE 0.6 MG TAB PO SCH (08:26)
--- NOTE | 2021-05-25 09:55 | XCELERA ---
[id number]
--- NOTE | 2021-05-25 10:55 | Cardiology Progress Note ---
Date of Service May 25, 2021 Assessment & Plan (1) Precordial chest pain: (2) Acute myopericarditis: (3) Elevated troponin: Plan: 1. Chest discomfort: His chest discomfort was very typical of pericarditis and it has been relieved with colchicine and a short course of Toradol. He feels very well today with no recurrence once Toradol was discontinued. 2. Acute myopericarditis: He presents with acute myopericarditis occurring several days after vaccination, that may or may not be the responsible event. The presentation is classic with his symptoms, his electrocardiographic findings and he had an elevated troponin which increased initially, decreased somewhat yesterday but has now increased again. For this I would continue colchicine for at least 3 to 6 months. I would avoid the use of NSAIDs. We can follow this up in 1 to 2 weeks in the office to make sure he does not have recurrence. He should be stable for discharge today. I will repeat the echocardiogram in 1 to 2 weeks. 3. Elevated troponin: His troponin was quite high when he presented, it fluctuated somewhat for several days however now has definitely dropped down and it should be safe for him to go home. I would send him home on colchicine and follow-up with a troponin in 1 to 2 weeks. I can arrange follow-up. Admission and Anticipated Discharge Date Admission Date: May 22, 2021 Subjective He is feeling well today, he has no chest discomfort and feels that he should go home. Physical Exam Physical Exam: Constitutional: Alert, cooperative and in no distress. HEENT: Unremarkable Neck: No jugular venous distention, carotid pulses are normal and equal bilaterally without bruits. Pulmonary: Clear to auscultation bilaterally. Cardiac: Regular rhythm with no murmur, gallop or rub. Abdomen: Soft, nontender with normal bowel sounds. Extremities: No edema. Distal pulses intact. Neurologic: No focal findings. Gait was not tested. Skin: No rash, ecchymoses or petechiae. Results & Data ([facility]) Vital Signs (Past 12 Hours) Vital Signs Temp Pulse Resp BP Pulse Ox 05/25/21 09:22 36.6 C 70 18 105/68 97 05/25/21 07:40 36.6 C 70 18 105/68 97 05/25/21 02:49 36.6 C 64 16 105/61 96 05/24/21 23:18 36.6 C 78 18 111/61 99 Laboratory Results Cardiac Enzymes 05/24/21 05/25/21 Range/Units 17:39 05:36 Troponin I 3.88 H* 1.67 H* (0-0.04) ng/ml Intake and Output 05/24/21 05/25/21 05/25/21 22:59 06:59 14:59 Intake Total 200 / 750 200 / 750 Balance 200 / 750 200 / 750 Intake: Oral 200 / 750 200 / 750 Other: Weight 61.5 kg 61.5 kg Patient Weight 05/26/21 06:59 Weight 61.5 kg Diagnostic Findings An electrocardiogram this morning shows pericarditis with some terminal T wave inversions suggesting resolution. An echocardiogram today by my reading shows mild left ventricular hypokinesis similar to his initial echocardiogram, does not appear to be worse. PG Care Time/CCT Total # of Minutes Spent Total Time Spent with Patient: Total time spent is greater than 50% in coordination of care (as documented) at patient's floor/unit and/or counseling patient: Coding Level of Care Code 97915 Subseq Hosp Care Lvl 2 Diagnoses Precordial chest pain R07.2 Acute myopericarditis I30.9 Elevated troponin R77.8
--- NOTE | 2021-05-25 11:58 | Discharge Summary ---
Date of Service May 25, 2021 Admission HPI Per Admitting Provider Srinivasan is a 20-year-old male with history of intermittent asthma and eczema who presents to [facility] for evaluation of chest pain. Patient states that he was in his normal health up until this weekend, when he got the third Moderna vaccine. Like his to previous shots, he said he felt under the weather and had some chills and fatigue. Then, beginning last night, he began having a mild chest pain that was worse with lying down and better with sitting up. He was able to get to sleep however. He then went about his day today with classes and when he got home, laid down and had severe 9 out of 10 chest pain on his right side that got better when he sat up. He thereafter continued to have an intermittent chest pain that he describes as dull and squeezing. He said that with lying down, he felt a little short of breath. Because of his symptoms, did decide to come to the ER for evaluation. He denies any recent illnesses prior to this event/last week. Denies any new medications. He is a college student at [employer], currently a sophomore studying structural engineering. Denies any use of any recreational drugs (including cocaine), alcohol, tobacco products. He denies any early cardiac or events in the family, but does endorse several family members who have had strokes and myocardial infarctions (specifically, his 2 grandfathers). He denies history of aortic disease that is known to him. In the ED, patient was found to be hemodynamically stable. His EKG was revealing for diffuse ST elevations within the leads II, III, aVF, V3 through V6; also observed were T wave inversions in aVR, aVL, V1, V2. Chest x-ray did not demonstrate any acute pulmonary processes; no evidence of cardiomegaly. Labs were significant for troponin 8.65, CRP 2.59, ESR 25, relative monocytosis at 0.99, eosinophilia at 0.6. Covid testing negative. Emergency physician spoke with the on-call assistant vice president, who agreed that patient's presentation was concerning for myopericarditis; regular Toradol and colchicine were recommended. 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 Discharge Exam Constitutional WD/WN, vitals as above Eyes EOM intact bilaterally; no conjunctival abnormality ENMT external ear and nose normal, oropharynx normal Neck trachea midline, no thyromegaly normal visual inspection Respiratory normal respiratory effort, lungs clear to auscultation no respiratory distress Cardiovascular RRR, no murmur, no edema Heart Sounds: no cardiac rub Gastrointestinal (Abdomen) Inspection/Auscultation: abdomen normal to inspection; abdomen not distended Musculoskeletal no cyanosis or clubbing, extremities motor strength 5/5 Skin no rashes, warm and dry Neurologic moves all extremities and awake Psychiatric Orientation: alert, oriented to person and cooperative Discharge Data Allergies Allergy/AdvReac Type Severity Reaction Status Date / Time peanut Allergy Severe Anaphylaxis Verified 05/22/21 23:32 shrimp Allergy Unknown Verified 05/22/21 23:32 Consultations 05/22/21 22:02 ED Decision to Admit Stat 05/22/21 22:17 Consult Cardiology Routine Hospital Course (1) Precordial chest pain: Srinivasan is a 20-year-old male with history of intermittent asthma and eczema who presents to [facility] for evaluation of chest pain approx. 3 days after receiving Moderna booster, subsequently found to have diffuse ST-T elevations, an elevated troponin, and elevated inflammatory markers -- concerning for myopericarditis. Suspected Myopericarditis / Positionally-related Chest Pain In the context of Covid vaccination approximately 3 days ago, patient developed acute onset positionally related chest pain Work-up as follows: EKG demonstrating diffuse ST elevations in the inferior and precordial leads, alongside elevated troponin to 8.6, elevated AST, and elevated inflammatory markers Physical exam revealing weak rub, otherwise no evidence of acute heart failure; upper/lower extremity pulses are 2+ and equal bilaterally, no focal neurologic deficits No family history of early cardiac , aortopathies Consult cardiology: Appreciate insight on length of treatment / need for CRP checks, activity restrictions following discharge from the hospital, need for repeat echo in future Initiate scheduled colchicine 0.6 mg twice daily. Was on Toradol for first 24 hours of admission. Now PRN (see below) COVID-19 negative -> Improved today without pain. Echo showed EF 45-50% with global hypokinesis. Troponin went down in the AM, but stayed steady at 8 in the afternoon. However, this AM, troponin is uptrended to 11.2. - Repeat troponin, EKG, and limited echo on 05/25 showed improvement all around. Troponin down to 1.[address] elevations resolving. Echo showed some improvement in EF. -> Discharged on colchicine 0.6 mg PO BID. F/u with cardiology in 10 days for repeat troponin and TTE. No exercise counseled to patient and family until cleared by cardiology. Intermittent asthma Patient reports only utilizing albuterol inhaler as needed, which is quite rare If patient reporting shortness of breath, will evaluate to ensure not secondary to cardiovascular cause; otherwise, can consider albuterol as needed (2) Elevated troponin: - As above, trend (3) Vaccine reaction: - Suspected, as above. Will report to database. Total Time Total Time Spent Total Time Spent (In Minutes): 35 Discharge Plan Discharge Items Patient Disposition: Home - Self-Care Reason For Visit: PERIMYOCARDITIS Discharge Diagnosis: Perimyocarditis Condition on Discharge: Good Activity: As commented below Activity Comment: No strenuous exercise (cardio or lifting) until approved by cardiology team Exercise/Sports: None Exercise Comment: None until cleared by cardiology Non-emergency contact: Primary Care Provider and Operator Control Room Call non-emergency contact if: your symptoms worsen, your pain is not controlled and your pain is worsening Follow-up/Referrals: Los Blanco MD [Physician] - 06/04/21 8:45 am (Dr. Blanco next week for a follow-up echocardiogram and troponin test.) [facility] [Primary Care Provider] - Diet: Regular Addtl Attending Provider Instructions: Mr. Zarate, You were admitted to the hospital for chest pain. The chest pain was coming from irritation of the lining of your heart as well as the heart muscle itself. We think this may have been caused by your Covid-19 booster, but sometimes it is hard to tell 100% what causes these issues. With treatment in the hospital, you are feeling much better. We are sending you home on a medication that is meant to relieve this inflammation called colchicine. It is to be taken twice every day for between 3 and 6 months. Please see the cardiology office at the listed appointment. At that visit, you will have a repeat echocardiogram and troponin to be sure your heart function is recovering and the troponin has gone back to normal. Until you see Dr. Blanco, please do not do any strenuous exercise (this includes "cardio" as well as strength training). You are free to walk to and from classes as normal. You may take ibuprofen or naproxen for any residual chest pain; however, be sure to stick within the bottle limits. If your chest pain gets worse or comes back, please call the cardiology office or return to the ER right away. Pending Studies at Discharge: No Stand-Alone Forms: [facility], Work/School Release, Smoking Cessation Medications and DC Order Prescriptions: New colchicine [Colcrys] 0.6 mg Tablet 0.6 mg PO BID Qty: 60 RF: 1 Continued diphenhydramine HCl 6.25 mg/5 mL Liquid 0 mg PO DIRECTED PRN (Reason: ALLERGIES) RF: 0 Perscribed Lotion 1 applic topical DAILY RF: 0 Discharge Orders: Discharge Order (Routine); Ordered 05/25/21 Ordered By: Gerald Crump Admission Data Admit Date/Time: 05/22/21 22:17 Attending Provider: Gerald Crump Admit Provider: Ez Zepeda Primary Care Provider: [facility] Other Providers: Donaldo Kellogg ; Gerald Crump Other Interventions: Discharge Summary Assessment (RN) Last Done: 05/25/21 09:22 Coding Level of Care Code D/C DAY MANAGEMENT >30 MINS Diagnoses Precordial chest pain R07.2 Elevated troponin R77.8 Vaccine reaction [id number] Encounter type: initial encounter
--- NOTE | 2021-05-26 12:41 | Electrocardiogram Report ---
Test Reason : Blood Pressure : / mmHG Vent. Rate : 062 BPM Atrial Rate : 062 BPM P-R Int : 158 ms QRS Dur : 084 ms QT Int : 378 ms P-R-T Axes : 038 073 090 degrees QTc Int : 383 ms Normal sinus rhythm Acute pericarditis Abnormal ECG When compared with ECG of 24-MAY-2021 06:03, Serial changes of evolving pericarditis Present Confirmed by Los Blanco ([id number]) on 05/26/2021 12:40:44 PM Referred By: REFERRED SELF Confirmed By:Los Blanco
== END 2021-05-25 10:18 | disposition home or self-care (01) | DRG 315 ==
LOC: ED 19:16 → SUATTDRO 22:17 → 2E 22:17